=== PATIENT | female | born 1985 | race Hispanic/Latino ===

== ENCOUNTER 2017-08-21 04:03 | Emergency (ER) | payer SELFPAY ==
[~2017-08-21] VITALS: Ht 152.4 cm; Wt 50.0 kg
[~2017-08-21 04:03] MED LIST: LORTAB 5/3255 MG PO; PENICILLN VK500 MG PO
[2017-08-21 04:41] LABS: URINE BILIRUBIN - DIPSTICK NEGATIVE (NEGATIVE); URINE BLOOD DIPSTICK LARGE (NEGATIVE); URINE CLARITY CLEAR; URINE COLOR YELLOW; URINE GLUCOSE - DIPSTICK NEGATIVE (NEGATIVE); URINE KETONE NEGATIVE (NEGATIVE); URINE LEUK ESTERASE NEGATIVE (NEGATIVE); URINE NITRITE - DIPSTICK NEGATIVE (Negative); URINE PH 5.5 (4.5-8.0); URINE PROTEIN - DIPSTICK NEGATIVE (NEG-TRACE); URINE UROBILINOGEN - DIPSTICK 0.2 E.U./dL (0.2)
[2017-08-21 04:50] LABS: URINE WBC 0-2 WBC/hpf (0-5)
[2017-08-21 05:01] LABS: ALBUMIN 4.4 g/dL (3.2-5.0); ALKALINE PHOSPHATASE 133 u/l (38-126); AMYLASE 63 u/l (30-110); ANION GAP 17 (6-22 (CALC)); BILIRUBIN, TOTAL 0.6 mg/dL (0.0-1.4); BUN 17 mg/dL (7-17); BUN/CREATININE RATIO 26 (12-20 (CALC)); CALCIUM 9.5 mg/dL (8.4-10.2); CARBON DIOXIDE 21 mmol/l (22-30); CHLORIDE 109 mmol/l (95-108); CREATININE 0.6 mg/dL (0.5-1.0); GFR > 60 ML/MIN (>=60 (CALC)); GFR FOR AFR.AMER. > 60 ML/MIN (>=60 (CALC)); GLUCOSE 99 mg/dL (65-105); HEMATOCRIT 41.4 % (37.0-47.0); HEMOGLOBIN 13.8 g/dl (12.0-16.0); IMMATURE GRANULOCYTES 0.1 % (0.0-1.0); LIPASE 131 u/l (23-300); MEAN CELL VOLUME 88.3 fL CALC (80.0-100.0); MEAN CORPUSCULAR HGB 29.4 pG CALC (26.0-32.0); MEAN CORPUSCULAR HGB CONC 33.3 g/L CALC (32.0-36.0); NEUT# 3.43 thou/uL (2.00-7.15); POTASSIUM 4.3 mmol/l (3.5-5.1); RED BLOOD COUNT 4.69 mill/uL (4.20-5.60); RED CELL DISTRI WIDTH 12.6 % (11.5-15.5); SGOT/AST 64 u/l (14-36); SGPT/ALT 63 u/l (9-52); SODIUM 143 mmol/l (137-146); TOTAL PROTEIN 7.7 g/dL (6.3-8.2)
[2017-08-21 05:11] LABS: MYOGLOBIN 15 ng/mL (0 - 62)
[2017-08-21] MEDS ORDERED: PERCOCET 5/325M1 TAB PO (06:28)
[2017-08-21 06:37] VITALS: BP 93/67
== END 2017-08-21 06:37 | disposition home or self-care (01) | DRG 776 ==
LOC: ED 04:03
PROVIDERS: Emergency Medicine
DX: O99.63 Diseases of the digestive system complicating the puerperium (principal); R11.2 Nausea with vomiting, unspecified; R10.11 Right upper quadrant pain
CPT/HCPCS: S0164

== ENCOUNTER 2017-11-08 07:00 | Day surgery (SDC) | payer SELFPAY ==
[~2017-11-08 07:00] MED LIST changes: +PERCOCET 5/325M1 TAB PO
[2017-11-08] MEDS ORDERED: PERCOCET 5/325M1 TAB PO (10:02)
[2017-11-08 10:22] VITALS: BP 108/58
== END 2017-11-08 10:35 | disposition home or self-care (01) | DRG 419 ==
LOC: ORM 07:00
PROVIDERS: ATTEND Surgery
PROC: 0FT44ZZ Resection of Gallbladder, Percutaneous Endoscopic Approach (ICD-10-PCS; principal; 2017-11-08)
PROC: BF00YZZ Plain Radiography of Bile Ducts using Other Contrast (ICD-10-PCS; 2017-11-08)
DX: K80.10 Calculus of gallbladder with chronic cholecystitis without obstruction (principal)
CPT/HCPCS: J2710; Q9967

== ENCOUNTER 2019-05-02 23:17 | Emergency (ER) | payer SELFPAY ==
[~2019-05-02] VITALS: Ht 152.4 cm; Wt 55.0 kg
[2019-05-03 00:10] LABS: IMMATURE GRANULOCYTES 0.4 % (0.0-5.0); MEAN CELL VOLUME 90.1 fL CALC (80.0-100.0); MEAN CORPUSCULAR HGB 30.3 pG CALC (26.0-32.0); MEAN CORPUSCULAR HGB CONC 33.6 g/L CALC (32.0-36.0); NEUT# 8.88 thou/uL (2.00-7.15); RED BLOOD COUNT 3.83 mill/uL (4.20-5.60)
[2019-05-03 00:13] LABS: HEMATOCRIT 34.5 % (37.0-47.0); HEMOGLOBIN 11.6 g/dl (12.0-16.0)
[2019-05-03 00:33] LABS: ALBUMIN 3.8 g/dL (3.2-5.0); ALKALINE PHOSPHATASE 162 u/l (38-126); ANION GAP 14 (6-22 (CALC)); BILIRUBIN, TOTAL 0.4 mg/dL (0.0-1.4); BUN 8 mg/dL (7-17); BUN/CREATININE RATIO 15 (12-20 (CALC)); CARBON DIOXIDE 21 mmol/l (22-30); CHLORIDE 108 mmol/l (95-108); CREATININE 0.5 mg/dL (0.5-1.0); GFR > 60 ML/MIN (>=60 (CALC)); GFR FOR AFR.AMER. > 60 ML/MIN (>=60 (CALC)); POTASSIUM 3.8 mmol/l (3.5-5.1); SGOT/AST 60 u/l (14-36); SODIUM 139 mmol/l (137-146); TOTAL PROTEIN 7.3 g/dL (6.3-8.2)
[2019-05-03 01:14] VITALS: BP 118/60
[2019-05-03] MEDS ORDERED: IBUPROFEN600 MG PO (01:26)
[2019-05-03] MEDS ORDERED: KEFLEX500 MG PO (01:26)
== END 2019-05-03 01:35 | disposition home or self-care (01) | DRG 601 ==
LOC: ED 23:17
PROVIDERS: Emergency Medicine
DX: N61.0 Mastitis without abscess (principal); R50.9 Fever, unspecified; N64.4 Mastodynia; N64.59 Other signs and symptoms in breast